=== PATIENT | female | born 1930 | race Caucasian/White ===

== ENCOUNTER 2017-09-03 12:28 | Emergency (ER) | payer MEDICARE, BC ==
[~2017-09-03] VITALS: Ht 162.6 cm; Wt 54.5 kg
[~2017-09-03 12:28] MED LIST: NO HOME MEDICATIONS; VITAMIN C500 MG PO; ZOFRAN 8MG8 MG PO
[2017-09-03 12:29] VITALS: TEMP 98.2
[2017-09-03] MEDS ORDERED: LUTEIN 15 MG-0.1 SGL PO ×2 (12:41→12:42)
[2017-09-03] MEDS ORDERED: GAS AID MAXIMU125 MG PO (12:42)
[2017-09-03] MEDS ORDERED: VITAMIN C500 MG PO (12:43)
[2017-09-03] MEDS ORDERED: MAGNESIUM TAURATE PO (12:44)
[2017-09-03] MEDS ORDERED: THE MEDICINE S200 M2 PO (12:46)
[2017-09-03] MEDS ORDERED: GAS RELIEF80 MG PO (12:47)
[2017-09-03] MEDS ORDERED: BIOTIN10000 MC1 PO (12:47)
[2017-09-03] MEDS ORDERED: HAIRSKINNAILS PO (12:48)
[2017-09-03 13:05] LABS: COLLECTION METHOD CLEAN CATCH
[2017-09-03 13:09] LABS: BASO # 0.1 (0.0-0.2); BASO % 0.5 % (0.0-2.0); EOS # 0.1 (0.0-0.7); EOS % 0.5 % (0-4.0); GRAN # 9.4 (1.4-6.5); GRAN % 84.1 % (42.2-75.2); HEMATOCRIT 40.6 % (37.0-47.0); HEMOGLOBIN 13.2 g/dl (12.5-16.0); LYMPH # 0.7 (1.2-3.4); LYMPH % 6.6 % (20.0-51.0); MEAN CELL VOLUME 85 fl (80.0-100.0); MEAN CORPUSCULAR HEMOGLOBIN 28 pg (27.0-31.0); MEAN CORPUSCULAR HGB CONC 33 g/dl (33.0-37.0); MEAN PLATELET VOLUME 9.4 fl (7.4-10.4); MONO # 0.9 (0.1-0.6); MONO % 7.9 % (1.7-9.3); PLATELET COUNT 416 K/mm3 (130-400); RED BLOOD COUNT 4.79 M/mm3 (4.10-5.30); WHITE BLOOD COUNT 11.2 K/mm3 (4.8-10.8)
[2017-09-03 13:26] LABS: MUCOUS Present /lpf; PH 7 (5-8); SQUAMOUS EPITHELIAL None Seen /hpf; URINE APPEARANCE Hazy; URINE BACTERIA None Seen /hpf; URINE BILIRUBIN Negative (NEGATIVE); URINE BLOOD 3+ (NEGATIVE); URINE COLOR Yellow; URINE GLUCOSE Negative (NEGATIVE); URINE KETONE Negative (NEGATIVE); URINE LEUKOCYTE ESTERASE 2+ (NEGATIVE); URINE PROTEIN(semi-quant) 2+ (NEGATIVE); URINE RBC >50 /hpf; URINE UROBILINOGEN Negative (NEGATIVE)
[2017-09-03 13:27] LABS: URINE WBC >50 /hpf
[2017-09-03 13:43] LABS: ADJUSTED CALCIUM 9.6 mg/dL (8.4-10.2); ALBUMIN 4.4 gm/dL (3.5-5.0); BILIRUBIN,TOTAL 0.6 mg/dL (0.0-1.0); C-REACTIVE PROTEIN 5.2 mg/dL (0.0-0.9); CALCIUM 9.9 mg/dL (8.4-10.2); POTASSIUM 3.9 mmol/L (3.4-5.0); TOTAL PROTEIN 7.7 gm/dL (6.4-8.2)
[2017-09-03] MEDS ORDERED: MACROBID 1100 MG/CAP PO (14:14)
[2017-09-03 14:53] VITALS: BP 135/69; PULSE 70
== END 2017-09-03 15:04 | disposition home or self-care (01) ==
LOC: COL.ER 12:28
PROVIDERS: Family Medicine
DX: N30.00 Acute cystitis without hematuria (principal); I48.91 Unspecified atrial fibrillation
CPT/HCPCS: J0696; J7030